=== PATIENT | male | born 1945 ===

== ENCOUNTER → 2018-09-19 | Outpatient (CLI) | payer MEDICARE, BC | END | disposition home or self-care (01) | LOC: LAB SHORT 12:18 → LAB 12:18 | DX: L08.9 Local infection of the skin and subcutaneous tissue, unspecified (principal); L03.90 Cellulitis, unspecified | CPT/HCPCS: 87070; 87077; 87147; 87186; 87205 ==

== ENCOUNTER → 2018-12-12 | Outpatient (CLI) | payer MEDICARE, BC | LOC: LAB SHORT 17:21 → LAB 17:21 | DX: R30.0 Dysuria (principal) | CPT/HCPCS: 87077; 87086; 87186 ==